=== PATIENT | female | born 1935 | race Caucasian/White ===

== ENCOUNTER 2022-08-30 14:21 | Emergency (ER) | payer MEDICARE, OTHER ==
[~2022-08-30] VITALS: Ht 149.9 cm; Wt 47.6 kg
[2022-08-30 14:23] VITALS: BP 182/73
--- NOTE | 2022-08-30 15:13 | NUR ---
87 y/o female biba from [facility] (memory care), pt was previously seen at [facility] for general weakness, ct of head was done and was negative. staff noticed pt was lethargic again today during lunch and wanted her re evaluated. pmh: hld, thyroid disease, spondylosis, traumatic subdural hemorrhage, seizures allergy: mevacor, hydrochlorothiazide, lipitor, niacin, penicillin
--- NOTE | 2022-08-30 15:33 | NUR ---
# 14 FR Urinary catheter inserted utilizing sterile technique. Immediate return of 200ML ml DARK YELLOW urine noted. Urine sample collected and sent to lab. Pt tolerated procedure WELL.
[2022-08-30 15:43] LABS: APPEARANCE,URINE CLEAR (CLEAR); BILIRUBIN,URINE NEGATIVE (NEGATIVE); BLOOD, URINE 1+ (NEGATIVE); COLOR,URINE YELLOW (YELLOW); LEUKOCYTE ESTERASE ,URINE NEGATIVE (NEGATIVE); NITRITE, URINE NEGATIVE (NEGATIVE); PH,URINE 6.5 (5.0-9.0); UGLUCOSE NEGATIVE (NEGATIVE)
[2022-08-30 15:53] LABS: BASOPHILS % (AUTO) 0.4 % (0.0-2.0); EOSINOPHILS # (AUTO) 0.1 K/uL (0-0.4); EOSINOPHILS % (AUTO) 1.4 % (0.0-4.0); HEMOGLOBIN 12.2 g/dL (12.0-16.0); LYMPHOCYTES # (AUTO) 1.4 K/uL (2.5-16.5); LYMPHOCYTES % (AUTO) 22.2 % (20.5-51.1); MEAN CORPUSCULAR HEMOGLOBIN 30 pg (27-31); MEAN CORPUSCULAR HGB CONC 34 g/dL (33-37); MEAN CORPUSCULAR VOLUME 87.9 fL (80-94); MONOCYTES # (AUTO) 0.8 K/uL (0.8-1.0); MONOCYTES % (AUTO) 12.2 % (1.7-9.3); NEUTROPHILS % (AUTO) 63.8 % (42.2-75.2); PLATELET COUNT (AUTO) 245 K/uL (140-450); RED BLOOD CELL COUNT(AUTO) 4.09 MIL/uL (4.20-5.40); RED CELL DISTRIBUTION WIDTH 15.2 % (11.6-13.7); WHITE BLOOD COUNT (AUTO) 6.3 K/uL (4.8-10.8)
[2022-08-30 16:00] LABS: RBC,URINE 11-20 (MOD) /HPF (0-5)
[2022-08-30 16:15] LABS: ALBUMIN 3.7 g/dL (3.4-5.0); ANION GAP 11.8 (8-16); ASPARTATE AMINOTRANSFERASE 28 U/L (15-37); CARBON DIOXIDE 29.6 mmol/L (21-32); CHLORIDE 99 mmol/L (98-107); CREATININE 0.9 mg/dL (0.6-1.3); GLUCOSE 102 mg/dL (74-106); POTASSIUM 4.4 mmol/L (3.5-5.1); SODIUM SERUM 136 mmol/L (136-145); TOTAL BILIRUBIN 0.7 mg/dL (0.0-1.0); UREA NITROGEN, BLOOD 21 mg/dL (7-18)
[2022-08-30 16:20] LABS: FREE T4 (FREE THYROXINE) 1.46 ng/dL (0.76-1.46); LIPASE 133 U/L (73-393); THYROID STIMULATING HORMONE 0.03 uIU/mL (0.34-3.74)
--- NOTE | 2022-08-30 16:28 | NUR ---
pt moved to bed 04 for observation
--- NOTE | 2022-08-30 17:35 | NUR ---
Patient appears to be resting comfortably in bed. Vital Signs within normal limits. Respirations even and unlabored.
--- NOTE | 2022-08-30 18:16 | NUR ---
per [facility], repeat head ct, if clear, pt will go to [facility] for social psychologist for separate placement.
[2022-08-30] MEDS ORDERED: ASPIRIN 325 MG TAB PO ONE (19:10)
--- NOTE | 2022-08-30 19:21 | NUR ---
report to michelle reese given
--- NOTE | 2022-08-30 21:00 | NUR ---
Pt resting comfortably at this time, awake, no c/o pain.
[2022-08-30] MEDS ORDERED: DEXT 5% /NACL 0.9% 1,000 ML IV ONE (21:15)
[2022-08-30] MEDS ORDERED: IBUP-1842 PO (22:09)
[2022-08-30] MEDS ORDERED: DONE5TAB6 PO (22:09)
[2022-08-30] MEDS ORDERED: ROSU10TA1 PO (22:09)
[2022-08-30] MEDS ORDERED: ALEN70TA85 PO (22:09)
[2022-08-30] MEDS ORDERED: QUET25TA PO (22:09)
[2022-08-30] MEDS ORDERED: MELA5SGL PO (22:09)
[2022-08-30] MEDS ORDERED: SYN.05 PO (22:09)
[2022-08-30] MEDS ORDERED: DOCU-2 PO (22:09)
[2022-08-30] MEDS ORDERED: VITA400T14 PO (22:09)
[2022-08-30] MEDS ORDERED: MULT-2253 PO (22:09)
[2022-08-30] MEDS ORDERED: EZET10TA14 PO (22:09)
--- NOTE | 2022-08-30 22:09 | NUR ---
MED RECONCILE COMPLETED
--- NOTE | 2022-08-30 23:00 | NUR ---
Called Colin for report, per nurse will call back.
--- NOTE | 2022-08-30 23:20 | NUR ---
Patient to be transferred to [facility]. Receiving facility has accepting physician and available space. ER physician has signed transfer form. Patient or responsible libertarian has agreed to transfer and signed form. Patient belongings inventoried and will be sent with patient. Copy of nursing notes, lab reports, Physicians Orders and X-rays to be sent with patient. Report called to Cydney PURCELL at receiving facility. [facility] ambulance service has been called for transfer. ETA is 0000.
[2022-08-30 23:39] VITALS: BP 160/55
--- NOTE | 2022-08-30 23:39 | NUR ---
[facility] to transfer patient to [facility]
== END 2022-08-30 23:39 | disposition short-term general hospital (02) ==
LOC: MED 14:21
DX: I63.9 Cerebral infarction, unspecified (principal); R53.1 Weakness; Z20.822 Contact with and (suspected) exposure to COVID-19; E03.9 Hypothyroidism, unspecified; E78.5 Hyperlipidemia, unspecified; F03.90 Unspecified dementia, unspecified severity, without behavioral disturbance, psychotic disturbance, mood disturbance, and anxiety; Z88.8 Allergy status to other drugs, medicaments and biological substances; Z88.0 Allergy status to penicillin
CPT/HCPCS: 36415; 70450; 71045; 80053; 81001; 82550; 83690; 83880; 84439; 84443; 84484; 85025; 87086; 87426; 93005; 96360; 96361; 99285; Q0092

== ENCOUNTER 2022-12-01 14:30 | Emergency (ER) | payer MEDICARE, OTHER ==
[~2022-12-01] VITALS: Ht 154.9 cm; Wt 50.8 kg
[~2022-12-01 14:30] MED LIST: ALEN70TA85 PO; DOCU-2 PO; DONE5TAB6 PO; EZET10TA14 PO; IBUP-1842 PO; MELA5SGL PO; MULT-2253 PO; QUET25TA PO; ROSU10TA1 PO; SYN.05 PO; VITA400T14 PO
[2022-12-01 14:32] VITALS: BP 108/64; PULSE 60; RESP 16; TEMP 97.8; O2SAT 99
[2022-12-01] MEDS ORDERED: QUEtiapine FUMARATE 25 MG TAB PO ONE (16:55)
[2022-12-01 20:28] VITALS: BP 120/56; PULSE 70; RESP 18; TEMP 97.8; O2SAT 100
== END 2022-12-01 20:28 | disposition short-term general hospital (02) ==
LOC: MED 14:30
DX: S00.01XA Abrasion of scalp, initial encounter (principal); S80.211A Abrasion, right knee, initial encounter; G30.9 Alzheimer's disease, unspecified; F02.80 Dementia in other diseases classified elsewhere, unspecified severity, without behavioral disturbance, psychotic disturbance, mood disturbance, and anxiety; E07.9 Disorder of thyroid, unspecified; Z88.0 Allergy status to penicillin; Z88.1 Allergy status to other antibiotic agents; Z88.8 Allergy status to other drugs, medicaments and biological substances; Z79.899 Other long term (current) drug therapy; W19.XXXA Unspecified fall, initial encounter; Y93.89 Activity, other specified; Y92.89 Other specified places as the place of occurrence of the external cause; Y99.8 Other external cause status
CPT/HCPCS: 70450; 71045; 72125; 73030; 73060; 99284; Q0092

== ENCOUNTER 2023-01-15 12:33 | Emergency (ER) | payer MEDICARE, OTHER ==
[~2023-01-15] VITALS: Ht 162.6 cm; Wt 57.6 kg
[2023-01-15 12:33] VITALS: BP 94/50; PULSE 73; RESP 20; TEMP 97.1; O2SAT 97
[~2023-01-15 12:33] MED LIST changes: -EZET10TA14 PO; +EZET10TA84 PO
[2023-01-15] MEDS ORDERED: NACL 0.9% 1,000 ML IV ONE ×2 (13:15→14:35)
[2023-01-15 14:06] LABS: BASOPHILS % (AUTO) 0.5 % (0.0-2.0); EOSINOPHILS # (AUTO) 0.1 K/uL (0-0.4); EOSINOPHILS % (AUTO) 1.1 % (0.0-4.0); HEMATOCRIT 24.4 % (36-48); HEMOGLOBIN 8.2 g/dL (12.0-16.0); LYMPHOCYTES # (AUTO) 0.8 K/uL (2.5-16.5); LYMPHOCYTES % (AUTO) 10.6 % (20.5-51.1); MEAN CORPUSCULAR HEMOGLOBIN 31 pg (27-31); MEAN CORPUSCULAR HGB CONC 33 g/dL (33-37); MEAN CORPUSCULAR VOLUME 92.9 fL (80-94); MONOCYTES # (AUTO) 0.4 K/uL (0.8-1.0); MONOCYTES % (AUTO) 5.1 % (1.7-9.3); NEUTROPHILS # (AUTO) 6.4 K/uL (1.8-7.7); NEUTROPHILS % (AUTO) 82.7 % (42.2-75.2); PLATELET COUNT (AUTO) 206 K/uL (140-450); RED BLOOD CELL COUNT(AUTO) 2.63 MIL/uL (4.20-5.40); RED CELL DISTRIBUTION WIDTH 13.8 % (11.6-13.7); WHITE BLOOD COUNT (AUTO) 7.8 K/uL (4.8-10.8)
[2023-01-15 14:27] LABS: INR 1.11 (0.8-1.2); PARTIAL THROMBOPLASTIN TIME 23.2 secs (22-35.6); PROTHROMBIN TIME 11.6 secs (10.8-13.4)
[2023-01-15] MEDS ORDERED: LEVOFLOXACIN 500 MG/D5W PREMIX 100 ML IV ONE (14:35)
[2023-01-15 14:39] LABS: LACTIC ACID 1.6 mmol/L (0.4-2.0)
[2023-01-15 14:40] LABS: CREATINE KINASE, TOTAL 51 U/L (26-192)
[2023-01-15 15:01] VITALS: O2SAT 98
[2023-01-15 15:10] LABS: ALANINE AMINOTRANSFERASE 16 U/L (12-78); ALBUMIN 2.9 g/dL (3.4-5.0); ALKALINE PHOSPHATASE 51 U/L (50-136); ANION GAP 12.3 (8-16); ASPARTATE AMINOTRANSFERASE 17 U/L (15-37); CALCIUM 7.3 mg/dL (8.5-10.1); CHLORIDE 107 mmol/L (98-107); GLUCOSE 105 mg/dL (74-106); POTASSIUM 4.3 mmol/L (3.5-5.1); TOTAL BILIRUBIN 0.3 mg/dL (0.0-1.0); TOTAL PROTEIN, SERUM 5.9 g/dL (6.4-8.2); UREA NITROGEN, BLOOD 25 mg/dL (7-18)
[2023-01-15 15:12] LABS: SODIUM SERUM 137 mmol/L (136-145)
[2023-01-15 16:47] VITALS: O2SAT 98
[2023-01-15 16:52] LABS: ANION GAP 13.6 (8-16); CARBON DIOXIDE 19.4 mmol/L (21-32); CHLORIDE 110 mmol/L (98-107); CREATININE 0.8 mg/dL (0.6-1.3); GLUCOSE 87 mg/dL (74-106); UREA NITROGEN, BLOOD 21 mg/dL (7-18)
[2023-01-15 16:59] LABS: SODIUM SERUM 138 mmol/L (136-145)
[2023-01-15 17:02] VITALS: BP 113/44; PULSE 70; RESP 16; TEMP 97.8
[2023-01-15 18:48] VITALS: O2SAT 100
[2023-01-15 19:10] LABS: APPEARANCE,URINE CLEAR (CLEAR); BILIRUBIN,URINE NEGATIVE (NEGATIVE); BLOOD, URINE TRACE-I (NEGATIVE); COLOR,URINE YELLOW (YELLOW); LEUKOCYTE ESTERASE ,URINE NEGATIVE (NEGATIVE); NITRITE, URINE NEGATIVE (NEGATIVE); PROTEIN,URINE NEGATIVE (NEGATIVE); UGLUCOSE NEGATIVE (NEGATIVE); UROBILINOGEN,URINE 0.2 EU/dL (0.2 - 1)
[2023-01-15 19:21] LABS: BACTERIA,URINE FEW /HPF (None Seen); RBC,URINE 0-5 /HPF (0-5); SQUAMOUS EPITHELIAL CELL,UR 0-3 (FEW) /LPF (0-3 (FEW)); WBC,URINE 0-5 /HPF (0-5)
== END 2023-01-15 20:43 | disposition short-term general hospital (02) ==
LOC: MED 12:33
DX: R55 Syncope and collapse (principal); J18.9 Pneumonia, unspecified organism; D64.9 Anemia, unspecified; G30.9 Alzheimer's disease, unspecified; F02.80 Dementia in other diseases classified elsewhere, unspecified severity, without behavioral disturbance, psychotic disturbance, mood disturbance, and anxiety; E11.9 Type 2 diabetes mellitus without complications; I10 Essential (primary) hypertension; E07.9 Disorder of thyroid, unspecified; E78.5 Hyperlipidemia, unspecified; Z88.0 Allergy status to penicillin; Z88.8 Allergy status to other drugs, medicaments and biological substances; Z79.899 Other long term (current) drug therapy; Z86.73 Personal history of transient ischemic attack (TIA), and cerebral infarction without residual deficits; Z20.822 Contact with and (suspected) exposure to COVID-19
CPT/HCPCS: 36415; 71045; 80048; 80053; 81001; 82550; 83605; 83880; 84484; 85025; 85610; 85730; 87040; 87086; 87426; 93005; 96361; 96365; 99285; J1956; J7030

== ENCOUNTER 2023-08-11 14:24 | Emergency (ER) | payer MEDICARE, OTHER ==
[~2023-08-11] VITALS: Ht 149.9 cm; Wt 52.2 kg
[2023-08-11 15:14] LABS: BASOPHILS % (AUTO) 0.2 % (0.0-2.0); EOSINOPHILS % (AUTO) 0.1 % (0.0-4.0); HEMATOCRIT 35.2 % (36-48); HEMOGLOBIN 11.7 g/dL (12.0-16.0); LYMPHOCYTES # (AUTO) 0.4 K/uL (2.5-16.5); LYMPHOCYTES % (AUTO) 3.2 % (20.5-51.1); MEAN CORPUSCULAR HEMOGLOBIN 31 pg (27-31); MEAN CORPUSCULAR HGB CONC 33 g/dL (33-37); MEAN CORPUSCULAR VOLUME 92.2 fL (80-94); MONOCYTES # (AUTO) 0.7 K/uL (0.8-1.0); NEUTROPHILS # (AUTO) 12.8 K/uL (1.8-7.7); NEUTROPHILS % (AUTO) 91.5 % (42.2-75.2); PLATELET COUNT (AUTO) 197 K/uL (140-450); RED BLOOD CELL COUNT(AUTO) 3.82 MIL/uL (4.20-5.40); RED CELL DISTRIBUTION WIDTH 15.1 % (11.6-13.7)
[2023-08-11 15:42] VITALS: BP 171/7; PULSE 68; RESP 18; TEMP 98; O2SAT 98
[2023-08-11 15:46] LABS: INR 1.2 (0.8-1.2); PARTIAL THROMBOPLASTIN TIME 24.5 secs (22-35.6); PROTHROMBIN TIME 12.5 secs (10.8-13.4)
[2023-08-11 15:50] LABS: ALANINE AMINOTRANSFERASE 52 U/L (12-78); ALBUMIN 3.6 g/dL (3.4-5.0); ALKALINE PHOSPHATASE 71 U/L (50-136); ANION GAP 15.9 (8-16); ASPARTATE AMINOTRANSFERASE 46 U/L (15-37); CARBON DIOXIDE 25.3 mmol/L (21-32); CHLORIDE 102 mmol/L (98-107); CREATININE 1.2 mg/dL (0.6-1.3); GLUCOSE 116 mg/dL (74-106); LIPASE 47 U/L (16-77); POTASSIUM 4.2 mmol/L (3.5-5.1); SODIUM SERUM 139 mmol/L (136-145); TOTAL BILIRUBIN 0.7 mg/dL (0.0-1.0); TOTAL PROTEIN, SERUM 7.3 g/dL (6.4-8.2); UREA NITROGEN, BLOOD 24 mg/dL (7-18)
[2023-08-11 18:06] VITALS: BP 141/56; PULSE 71; RESP 16; TEMP 98; O2SAT 98
== END 2023-08-11 18:09 | disposition home or self-care (01) ==
LOC: MED 14:24
DX: K92.0 Hematemesis (principal); E11.9 Type 2 diabetes mellitus without complications; F03.90 Unspecified dementia, unspecified severity, without behavioral disturbance, psychotic disturbance, mood disturbance, and anxiety; I10 Essential (primary) hypertension; Z86.69 Personal history of other diseases of the nervous system and sense organs; Z86.73 Personal history of transient ischemic attack (TIA), and cerebral infarction without residual deficits; Z79.899 Other long term (current) drug therapy; Z88.8 Allergy status to other drugs, medicaments and biological substances; Z88.0 Allergy status to penicillin
CPT/HCPCS: 36415; 71045; 80053; 83690; 84484; 85025; 85610; 85730; 93005; 99285; Q0092

== ENCOUNTER 2024-02-18 17:23 | Emergency (ER) | payer MEDICARE, OTHER ==
[~2024-02-18] VITALS: Ht 162.6 cm; Wt 59.0 kg
[2024-02-18 17:46] VITALS: BP 130/80; PULSE 82; RESP 16; TEMP 97.2; O2SAT 98
[2024-02-18 18:47] LABS: BASOPHILS # (AUTO) 0.1 K/uL (0.00-0.22); BASOPHILS % (AUTO) 0.7 % (0.0-2.0); EOSINOPHILS # (AUTO) 0.1 K/uL (0-0.4); HEMATOCRIT 36.1 % (36-48); HEMOGLOBIN 11.9 g/dL (12.0-16.0); LYMPHOCYTES # (AUTO) 1.4 K/uL (2.5-16.5); MEAN CORPUSCULAR HEMOGLOBIN 31 pg (27-31); MEAN CORPUSCULAR HGB CONC 33 g/dL (33-37); MEAN CORPUSCULAR VOLUME 93.6 fL (80-94); MONOCYTES # (AUTO) 0.7 K/uL (0.8-1.0); MONOCYTES % (AUTO) 9.7 % (1.7-9.3); NEUTROPHILS # (AUTO) 4.8 K/uL (1.8-7.7); NEUTROPHILS % (AUTO) 67.6 % (42.2-75.2); PLATELET COUNT (AUTO) 213 K/uL (140-450); RED BLOOD CELL COUNT(AUTO) 3.85 MIL/uL (4.20-5.40); RED CELL DISTRIBUTION WIDTH 14.9 % (11.6-13.7); WHITE BLOOD COUNT (AUTO) 7.2 K/uL (4.8-10.8)
[2024-02-18 18:54] LABS: ANION GAP 12.5 (8-16); CALCIUM 8.6 mg/dL (8.5-10.1); CARBON DIOXIDE 27.6 mmol/L (21-32); CHLORIDE 102 mmol/L (98-107); CREATININE 1.5 mg/dL (0.6-1.3); GLUCOSE 90 mg/dL (74-106); POTASSIUM 4.1 mmol/L (3.5-5.1); SODIUM SERUM 138 mmol/L (136-145); UREA NITROGEN, BLOOD 33 mg/dL (7-18)
[2024-02-18 18:57] LABS: INR 1.05 (0.8-1.2)
[2024-02-18 19:02] LABS: CREATINE KINASE, TOTAL 152 U/L (26-192)
[2024-02-18 19:15] LABS: APPEARANCE,URINE CLEAR (CLEAR); BILIRUBIN,URINE NEGATIVE (NEGATIVE); BLOOD, URINE 2+ (NEGATIVE); COLOR,URINE YELLOW (YELLOW); LEUKOCYTE ESTERASE ,URINE NEGATIVE (NEGATIVE); NITRITE, URINE NEGATIVE (NEGATIVE); PH,URINE 6.5 (5.0-9.0); PROTEIN,URINE NEGATIVE (NEGATIVE); UGLUCOSE NEGATIVE (NEGATIVE); UROBILINOGEN,URINE 0.2 EU/dL (0.2 - 1)
[2024-02-18 21:14] VITALS: O2SAT 95
[2024-02-18] MEDS ORDERED: CRUSHER, PILL MC ONE (21:25)
[2024-02-18] MEDS: LOSARTAN 25 MG TAB PO ONE (21:26)
[2024-02-18] MEDS ORDERED: CLONIDINE HYDROCHLORIDE 0.1 MG TAB PO ONE (23:50)
[2024-02-19 00:14] VITALS: O2SAT 95
[2024-02-19 00:16] VITALS: BP 184/82; PULSE 58; RESP 13; TEMP 98.3; O2SAT 95
== END 2024-02-19 00:15 ==
LOC: MED 17:23
DX: S00.83XA Contusion of other part of head, initial encounter (principal); S80.01XA Contusion of right knee, initial encounter; M25.551 Pain in right hip; I10 Essential (primary) hypertension; E03.9 Hypothyroidism, unspecified; E78.5 Hyperlipidemia, unspecified; E11.9 Type 2 diabetes mellitus without complications; G30.9 Alzheimer's disease, unspecified; F02.80 Dementia in other diseases classified elsewhere, unspecified severity, without behavioral disturbance, psychotic disturbance, mood disturbance, and anxiety; Z86.73 Personal history of transient ischemic attack (TIA), and cerebral infarction without residual deficits; Z86.69 Personal history of other diseases of the nervous system and sense organs; Z79.899 Other long term (current) drug therapy; Z79.82 Long term (current) use of aspirin; Z88.8 Allergy status to other drugs, medicaments and biological substances; Z88.0 Allergy status to penicillin; W18.39XA Other fall on same level, initial encounter; Y92.89 Other specified places as the place of occurrence of the external cause; Y93.89 Activity, other specified; Y99.8 Other external cause status
CPT/HCPCS: 36415; 70450; 71045; 72125; 72170; 73502; 73562; 80048; 81003; 82550; 82948; 83880; 84484; 85025; 85610; 85730; 93005; 99285; G0500; Q0092